=== PATIENT | male | born 1995 | race Hispanic/Latino ===

== ENCOUNTER 2016-04-23 14:55 | Emergency (ER) | payer BC, OTHER ==
[2016-04-23] MEDS ORDERED: Adacel (T-DAP) 0.5 ML VIAL ONE (15:22)
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
== END 2016-04-23 17:20 | disposition home or self-care (01) ==
LOC: BURERS 14:55
DX: S09.90XA Unspecified injury of head, initial encounter (principal); M54.5 Low back pain; S20.411A Abrasion of right back wall of thorax, initial encounter; Y04.0XXA Assault by unarmed brawl or fight, initial encounter
CPT/HCPCS: 70450; 72131; 72192; 90471; 90715

== ENCOUNTER 2025-03-02 20:48 | Emergency (ER) | payer OTHER | END 2025-03-02 23:04 | disposition home or self-care (01) | LOC: BURERS 20:48 | DX: S63.91XA Sprain of unspecified part of right wrist and hand, initial encounter (principal); F17.290 Nicotine dependence, other tobacco product, uncomplicated; W18.30XA Fall on same level, unspecified, initial encounter | CPT/HCPCS: 99283 ==